=== PATIENT | male | born 1990 | race American Indian/Alaskan Native ===

== ENCOUNTER 2020-11-02 10:05 | Emergency (ER) | payer SELFPAY ==
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
--- NOTE | 2020-11-02 12:57 | XRay Report ---
CHEST 2 VIEWS INDICATION / CLINICAL INFORMATION: Shortness of breath. COMPARISON: None available. FINDINGS: SUPPORT DEVICES: None. HEART / MEDIASTINUM: The heart size and pulmonary vasculature are normal. LUNGS / PLEURA: No significant pulmonary or pleural abnormality. No pneumothorax. ADDITIONAL FINDINGS: No significant additional findings. IMPRESSION: No acute findings. Signer Name: Henrik Burger MD Signed: 11/02/2020 12:52 PM Workstation Name: [id number]
[2020-11-02 14:02] VITALS: BP 158/88
== END 2020-11-02 14:02 | disposition home or self-care (01) ==
LOC: ED 10:05
DX: M25.561 Pain in right knee (principal); M25.562 Pain in left knee; G89.29 Other chronic pain; R06.02 Shortness of breath; F17.200 Nicotine dependence, unspecified, uncomplicated; Z98.890 Other specified postprocedural states
CPT/HCPCS: 71046

== ENCOUNTER 2020-12-01 16:31 | Emergency (ER) | payer SELFPAY ==
[2020-12-01 17:06] VITALS: BP 134/69
--- NOTE | 2020-12-01 17:08 | Event Note ---
ED Screening Note Date of service: 12/01/20 Time: 17:07 ED Screening Note: Patient complains of body aches, cough, and chills x 2 days States one episode of vomiting without abdominal pain This initial assessment/diagnostic orders/clinical plan/treatment(s) is/are subject to change based on patients health status, clinical progression and re- assessment by fellow clinical providers in the ED. Further treatment and workup at subsequent clinical providers discretion. Patient/guardian urged not to elope from the ED as their condition may be serious if not clinically assessed and managed. Initial orders include: X-ray
--- NOTE | 2020-12-01 17:35 | XRay Report ---
CHEST 2 VIEWS INDICATION / CLINICAL INFORMATION: cough. COMPARISON: 11/02/2020 FINDINGS: SUPPORT DEVICES: None. HEART / MEDIASTINUM: No significant abnormality. LUNGS / PLEURA: No significant pulmonary or pleural abnormality. No pneumothorax. ADDITIONAL FINDINGS: No significant additional findings. IMPRESSION: 1. No acute findings. Signer Name: Henrik Lam MD Signed: 12/01/2020 5:30 PM Workstation Name: [id number]
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
== END 2020-12-01 21:35 | disposition home or self-care (01) ==
LOC: ED 16:31
DX: F17.200 Nicotine dependence, unspecified, uncomplicated (principal); Z79.899 Other long term (current) drug therapy; Z98.890 Other specified postprocedural states; Z20.828 Contact with and (suspected) exposure to other viral communicable diseases
CPT/HCPCS: 71046